=== PATIENT | male | born 1955 | race Caucasian/White ===

== ENCOUNTER 2017-12-23 17:41 | Emergency (ER) | payer OTHER ==
[~2017-12-23] VITALS: Ht 198.1 cm; Wt 115.0 kg
[~2017-12-23 17:41] MED LIST: COUMADIN1 MG PO; KEFLEX500 MG PO
[2017-12-23] MEDS ORDERED: AUGMENTIN875 MG PO (20:08)
[2017-12-23] MEDS ORDERED: PERCOCET 5/31 TABLET PO (20:08)
[2017-12-23 20:45] VITALS: BP 135/74
== END 2017-12-23 20:45 | disposition home or self-care (01) ==
LOC: EME 17:41
PROC: 0HQGXZZ Repair Left Hand Skin, External Approach (ICD-10-PCS; principal; 2017-12-23)
DX: S61.411A Laceration without foreign body of right hand, initial encounter (principal); W54.0XXA Bitten by dog, initial encounter; I48.91 Unspecified atrial fibrillation; Z79.01 Long term (current) use of anticoagulants
CPT/HCPCS: 73130; 99281; 99284